=== PATIENT | male | born 1950 | race Caucasian/White ===

== ENCOUNTER 2019-02-07 21:58 | Inpatient (IN) | payer OTHER ==
[~2019-02-07] VITALS: Ht 182.9 cm; Wt 134.9 kg
--- NOTE | 2019-02-07 22:16 | NUR ---
PT BROUGHT IN BY AMBULANCE FOR SOB AND LEFT LOWER EXTREMITY EDEMA X 1 WEEK WITH WORSENING SOB X 4HRS AND CHEST PAIN X 1 HR. PT AWAKE, ALERT, RESPIRATIONS APPEAR SLIGHTLY LABORED BUT SYMMETRICAL. LEFT LOWER EXTREMITIES +2 PITTING EDEMA, RIGHT LOWER EXTREMITY +1PITTING EDEMA. PT ABLE TO SPEAK IN COMPLETE SENTENCES. WILL CONTINUE TO MONITOR. SAFETY PRECAUTIONS IN PLACE
--- NOTE | 2019-02-07 22:21 | NUR ---
DR. KAUR AT BEDSIDE FOR MSE
--- NOTE | 2019-02-07 22:45 | NUR ---
RN NEUROLOGY AT BEDSIDE. PT PROVIDED WITH URINAL AND INSTRUCTED TO PROVIDE URINE SAMPLE, PT VERBALIZES UNDERSTANDING
[2019-02-07 23:06] LABS: BASOPHIL % 0.1 % (0-2); PLATELET COUNT 193 x10^3mcL (130-400)
[2019-02-07 23:19] LABS: CALCIUM 8.8 mg/dL (8.5-10.1); CARBON DIOXIDE 26.8 mmol/L (21-32); CHLORIDE SERUM 100 mmol/L (98-107); CREATININE SERUM 0.9 mg/dL (0.7-1.3); GFR1 > 60 mL/min; GLUCOSE SERUM 119 mg/dL (74-106); POTASSIUM SERUM 4.6 mmol/L (3.5-5.1); SODIUM SERUM 138 mmol/L (136-145)
[2019-02-07 23:24] LABS: ALKALINE PHOSPHATASE 108 U/L (46-116); ALT/SGPT 66 U/L (16-63); AST/SGOT 62 U/L (15-37); BILIRUBIN TOTAL 0.4 mg/dL (0.20-1.00); TOTAL PROTEIN, SERUM 7.4 g/dL (6.4-8.2)
--- NOTE | 2019-02-07 23:27 | NUR ---
PT APPEARS TO HAVE MORE LABORED BREATHING AT THIS TIME. PT REPORTS BEING MORE SOB. EXPIRATORY WHEEZES AUSCULTATED. DR. KAUR MADE AWARE OF THE ABOVE. WILL CONTINUE TO MONITOR CLOSELY. SAFETY PRECAUTIONS IN PLACE
--- NOTE | 2019-02-07 23:31 | NUR ---
report given to delta steiner
[2019-02-07 23:35] LABS: UA SPECIFIC GRAVITY 1.025 (1.005-1.035); microscopic required? YES; urine erythrocyte NEGATIVE (NEGATIVE)
[2019-02-07 23:37] LABS: CK-MB 3.3 ng/mL (0-3.6)
[2019-02-08] VITALS (8 sets, daily range): BP systolic 125–179; BP diastolic 57–93
--- NOTE | 2019-02-08 00:05 | NUR ---
PT UNABLE TO TOLERATE ORDERED SETTING ON BIPAP OF 12/6, TITRATED TO 10/5 PT [address] SETTINGS WELL. DR KAUR NOTIFED ABOUT CHANGES. WILL CONTINUE TO MONITOR.
--- NOTE | 2019-02-08 00:12 | NUR ---
PT ON BIPAP AT THIS TIME. DENIES SOB AT THIS TIME. AWAKE, ALERT, RESPIRATIONS EVEN AND UNLABORED. SAFETY PRECAUTIONS IN PLACE
[2019-02-08] MEDS ORDERED: OXYCODONE HYDRO15 MG PO (00:44)
[2019-02-08] MEDS ORDERED: ALBUTEROL0.63 MG/3 (00:45)
[2019-02-08] MEDS ORDERED: ALL DAY ALLERGY10 M2 PO (00:45)
[2019-02-08] MEDS ORDERED: PROAIR HFA8.5 GM IH (00:45)
--- NOTE | 2019-02-08 00:45 | NUR ---
MEDICATED PER EMAR. PT REQUESTED TO BE REMOVED OFF BIPAP "FOR A FEW MINUTES." PT PLACED ON 5L . WILL MONITOR. RESPIRATIONS EVEN AND UNLABORED. AWAKE, ALERT. FAMILY AT BEDSIDE. SAFETY PRECAUTIONS IN PLACE
--- NOTE | 2019-02-08 01:06 | NUR ---
PT REFUSING TO BE PUT BACK ON BIPAP AT THIS TIME. WILL CONTINUE TO MONITOR. PT CURRENTLY SITTING IN BED USING PHONE. AWAKE, ALERT, RESPIRATIONS EVEN AND UNLABORED. SAFETY PRECAUTIONS IN PLACE
--- NOTE | 2019-02-08 01:40 | NUR ---
REPORT GIVEN TO MARCIE FORTUNE, ALL QUESTIONS AND CONCERNS WERE ADDRESSED
--- NOTE | 2019-02-08 02:20 | NUR ---
RECEIVED PT FROM ED VIA [facility] ACCOMPANIED BY RN AND EMT. PT ABLE TO AMBULATE FROM [facility] TO BED WITH SLOW BUT STEADY GAIT. SOB AND DYSPNEA WITH EXERTION. BREATHING ON 2LNC, EVEN AND SHALLOW, B/L WHEEZES NOTED, O2 SAT 94% PT ADMITS TO SMOKING 1/2 TO 2 PPD AND QUIT 1 WEEK AGO. PT DOES NOT USE O2 AT HOME. PULSES PRESENT AND EQUAL THROUGHOUT, +1 EDEMA TO LLE, TRACE EDEMA TO RLE. AA/OX4, ABLE TO MAKE NEEDS KNOWN, SPEECH CLEAR AND APPROPRIATE. NSR TO TELE #1, HR 80, DENIES CP OR PRESSURE. ABD ROUND AND SOFT WITH ACTIVE BOWEL SOUNDS, DENIES N/V/D, C/O ABD TENDERNESS UPON PALPATION, PT HAS HX OF HERNIA REPAIR X2. PT HAS INTRA ABDOMINAL FENTYNL PUMP THAT ADMINISTERS 1412 MCG PER DAY TO PT'S SPINAL CORD. PT STATES HE GETS IT REFILLED AT A PAIN CLINIC. FREELY VOIDS URINE WITHOUT ISSUE. PT HAS HX OF TESTICULAR CANCER WITH R TESTICLE REMOVED. GENERALIZED WEAKNESS, AMBULATORY WITHOUT ASSISTIVE DEVICE AT BASELINE. IV TO LAC IN PLACE, DRY, PATENT, INTACT, S/L AT THIS TIME, FLUSHED WELL WITH NS WITH GOOD BLOOD RETURNED. ORIENTED PT TO ROOM AND CALL LIGHT. ALL NEEDS ASSESSED AND ATTENDED TO. CALL LIGHT WITHIN REACH. WILL CONTINUE TO MONITOR
[2019-02-08 02:58] LABS: CHOLESTEROL/HDL RATIO 3.4; MAGNESIUM 1.6 mg/dL (1.8-2.4); PHOSPHOROUS 2.8 mg/dL (2.5-4.9)
[2019-02-08 03:05] LABS: T3 TOTAL 1.59 ng/mL
[2019-02-08 03:11] LABS: FREE T4 1.46 ng/dL (0.76-1.46); FREE THYROXINE INDEX 3.4 ug/dL (1.4-4.5)
--- NOTE | 2019-02-08 04:22 | NUR ---
PT LAYING IN BED, BREATHING EVEN AND UNLABORED ON 2LNC. NO ACUTE DISTRESS OBSREVED. AROUSABLE TO VERBAL STIMULI. CALL LIGHT WITHIN REACH. WILL CONTINUE TO MONITOR
--- NOTE | 2019-02-08 05:31 | NUR ---
PT HAS VERY DRY COUGH, REQUESTING BREATHING TX. RT MADE AWARE. WILL ANTICIPATE
--- NOTE | 2019-02-08 06:12 | NUR ---
NO SIGNIFICANT CHANGES TO REPORT. PT COMPLIED WITH NURSING CARE TRHOUGHOUT THE SHIFT. PT REMAINS BREATHING ON 2L NC, EVEN AND UNLABORED, LAYING IN BED, AROUSABLE TO VERBAL STIMULI. PT COMPLIED WITH NURSING CARE THROUGHOUT THE SHIFT. COMFORT AND SAFETY MEASURES MAINTAINED. ALL NEEDS ASSESSED AND ATTENDED TO. CALL LIGHT WITHIN REACH. WILL CONTINUE TO MONITOR AND ENDORSE CARE TO DAY SHIFT NURSE
[2019-02-08 06:13] LABS: BASOPHIL % 0.1 % (0-2); PLATELET COUNT 205 x10^3mcL (130-400)
[2019-02-08 06:43] LABS: CALCIUM 9.5 mg/dL (8.5-10.1); CARBON DIOXIDE 23.4 mmol/L (21-32); CHLORIDE SERUM 102 mmol/L (98-107); GFR1 > 60 mL/min; GLUCOSE SERUM 163 mg/dL (74-106); POTASSIUM SERUM 4.4 mmol/L (3.5-5.1); SODIUM SERUM 140 mmol/L (136-145)
[2019-02-08 07:06] LABS: RED CELL DISTRIBUTION WIDTH 17.3 % (11.5-14.5)
--- NOTE | 2019-02-08 08:00 | NUR ---
RECEIVED PATIENT A/A/OX4; CLEAR SPEECH. TELE#6; SR; HR = 90'S. DENIED CHEST PAIN. C/O SOB ON EXCERTION. BREATHING SOUND DIMINISHED W/ WHEEZING JOSIAH. O2 SAT 94% ON 2L VIA N/C; RT PROTOCOL. TOLERATED REGULAR DIET. PATIENT HAD HX OF CHRONIC BACK PAIN W/ SX; C/O BACK APIN ON AND OFF. FENTANYL PUMP TO L ABD, UNDER SKIN ( PER PATIENT- INFUSING 1412 MCG FENTANYL DAILY). PATIENT AMBULATED ON SLOW, STEADY GAIT. HAD BM X1 THIS AM VIA BRP. VOID FREELY. CALL LIGHT IN REACH.
--- NOTE | 2019-02-08 11:17 | NUR ---
C/O BACK PAIN ON 02/17; OXICODONE 15MG PO GIVEN. CONTINUE MONITOR.
--- NOTE | 2019-02-08 19:00 | NUR ---
RESP CONDITION IMPROVING. RT PROTOCOL. HAD BM X1; VOID FREELY VIA BRP INCORSE CARE TO NOC NURSE.
--- NOTE | 2019-02-08 19:35 | NUR ---
RECEIVED PT RESTING IN BED, NO ACUTE DISTRESS NOTED. PT WITH INTRACTIBLE COUGH AT THIS TIME, REQUESTING BREATHING TX, WILL FOLLOW UP WITH RT. AOX4, DENIES [place]/DIZZINESS. TELE # 6 SR, DENIES CP. PULSES PALPABLE BILAT, DENIES NUMBNESS/TINGLING IN FEET. TRACE EDEMA NOTED. RESP LABORED DURING COUGHING EXACERBATION. INSP & EXP WHEEZE NOTED. PT ON 2LNC. OBESE PT, DENIES N/V/D. PT BRP, SLOW/STEADY GAIT. GENERALIZED WEAKNESS, SKIN INTACT. DENIES PAIN AT THIS TIME. PT WITH IMPLANTED FENTANYL PUMP TO ABD FOR HX OF CHRONIC PAIN. IV SITE TO THE LAC PATENT, SALINE LOCKED AT THIS TIME. ALL COMFORT AND SAFETY MEASURES PROVIDED FOR, CALL LIGHT WITHIN REACH BED IN LOWEST POSITION, WILL CONTINUE TO MONITOR.
--- NOTE | 2019-02-08 19:53 | NUR ---
PHONED RT ABOUT PT WITH AUDIBLE WHEEZE (EXP & INSP), UNCONTROLLABLE COUGH AT THIS TIME. PER RT WILL COME UP NOW.
--- NOTE | 2019-02-08 23:17 | NUR ---
PAGED [facility] FOR DR. SONG, WILL REQUEST SOMETHING TO HELP PT RELAX WELL ASSIST WITH TOLERANCE OF BIPAP. WILL WAIT FOR CALL BACK.
--- NOTE | 2019-02-09 05:10 | NUR ---
PT RESTED IN INTERVALS DURING SHIFT, NO ACUTE CHANGES OCCURRING OVERNIGHT. PT DID NOT TOLERATE THE BiPAP LAST NIGHT, RT ATTEMPTED TO COMBINE BREATHIGN TX WITH INITIATION OF BiPAP AND RELAXATION MEDICATION, ALTHOUGH NO SUCCESS. PT EDUCATED ON THE BENEFITS OF THE MACHINE, WILL CONTINUE TO ENCOURAGE ITS USE. INCETIVE SPIROMETER AT BEDSIDE AND RT EDUCATED PT ON THE USE WELL. PT REMAINS ON 2LNC, TOLERATING BREATHING TX WELL. IV SITE PATENT. NO REDNESS, SWELLING OR PAIN NOTED. CALL LIGHT WITHIN REACH, BED IN LOWEST POSITON, WILL CONTINUE TO MONITOR.
[2019-02-09 06:02] LABS: PLATELET COUNT 198 x10^3mcL (130-400)
[2019-02-09 06:12] VITALS: BP 130/49
[2019-02-09 06:31] LABS: CALCIUM 9.6 mg/dL (8.5-10.1); CARBON DIOXIDE 23.7 mmol/L (21-32); CHLORIDE SERUM 106 mmol/L (98-107); GFR1 > 60 mL/min; GLUCOSE SERUM 206 mg/dL (74-106); POTASSIUM SERUM 4.9 mmol/L (3.5-5.1); SODIUM SERUM 145 mmol/L (136-145)
[2019-02-09 06:41] LABS: BASOPHIL % 0 % (0-2); RED CELL DISTRIBUTION WIDTH 17.5 % (11.5-14.5)
--- NOTE | 2019-02-09 07:39 | NUR ---
ENDORSED ALL CARE TO DAYSHIFT NURSE, ALL QUESTIONS AND CONCERNS ADDRESSED. ALL COMFORT AND SAFETY MEASURES PROVIDED FOR, CALL LIGHT WITHIN REACH, BED IN LOWEST POSITION, WILL CONTINUE TO MONITOR.
--- NOTE | 2019-02-09 08:00 | NUR ---
SHIFT ASSESSMENT DONE. PATIENT A/A/OX4. TELE#6; HR = 90. DENIED CHEST PAIN. CONGESTED COUGHING AT TIMES. STATED NO SPUTUM. RT PROTOCOL. WHEEZING SOUND AND RHONCHI SUBSIDING. FENTANYL PUMP TO LLQ ABD. HX OF MULTIPLE BACK SURGERIES. PATIENT NO C/O BACK PAIN NOW. ABLE TO WALK IN ROOM. TOLERATRED REGULAR DIET BREAKFAST. NO N/V. IVHL'D TO LAC. PATENT WITH NS FLUSHING. CALL LIGHT IN REACH.
[2019-02-09 09:54] VITALS: BP 149/58
--- NOTE | 2019-02-09 11:56 | NUR ---
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, back surgery x5, feet surgeries, left arm surgery Labs: BG 206H, BUN 24H, AST 62H, ALT 66H Meds: Colace, lactinex, Levaquin, pulmicort, zofran Diet: Regular PO Intake: Breakfast 50% per patient Ht: 182.88 cm (72") Wt: 134.9 kg (296#) BMI: 40.3 kg/m2 (morbid obesity) Bed scale: 134.9 kg IBW: 178# (81 kg) %IBW: 166 UBW: 216# Age: 68/M Food Allergies: NKFA Skin: intact Ion: 19 Edema: none GI: Last BM: 02/08 Trigger- admitted w/ potential risk diagnosis Per H&P, Pt is a 68 year old male with PMH of chronic pain from multiple back surgeries, COPD, and right testicular cancer in remission with chemotherapy and right testicular removal was brought in by ambulance from home for shortness of breath for 1 week. RDN Visit (02/09): Patient was alert and oriented. Patient was coughing a lot while answering questions. Patient said that he gained about 80# in last 6-8 months as he is unable to sleep at night and then feels like eating. Patient is unable to do exercise due to back and knee pain. Paged Dr. Victor Manuel Cervantes, waiting for call back. Problem with: N/V/D/C: no Problems with: Chewing/Swallowing: sometimes d/t coughing Current appetite: fair Recent wt change: gained 80# x 6-8 months %wt change: 37% Vitamin/Supplement use: no Special diet at home: regular Physical activity: sedentary d/t back pain, surgeries Nutrition education given: COPD diet education was provided using [facility] handout on 'Nutrition Therapy for COPD'. Concepts like small frequent meals, label reading, high fiber foods were discussed. Food-drug interactions: Colace- high fiber w/2421-1916 ml fluids Education given: no Estimated Nutritional Needs Based on adjusted body weight 94 kg Energy: 1987-8915 kcal/d (20-25 kcal/kg) Protein: 75.2-94 g/d (0.8-1.0 g/kg) - preserve LBM Fluid: per doctor Nutrition Diagnosis 1. Inadequate oral intake related to COPD, cough as evidenced by self-reported PO of 50% Intervention 1. Recommend low fat diet. Monitor/Evaluate Goal: PO intake at least 75% of estimated needs Monitor: PO intake, Labs, GI function F/U in 3-5 days as moderate risk 02/12-7
--- NOTE | 2019-02-09 11:56 | NUR ---
1. Recommend low fat diet.
[2019-02-09 13:17] VITALS: BP 152/55
--- NOTE | 2019-02-09 15:21 | NUR ---
PT C/O OF ACHING CHRONIC BACK PAIN; GIVEN ROXICODONE 15MG PO; INSTRUCTED PT TO LAY DOWN AND REST; WILL ENDORSE TO DEVIKA SONG.
[2019-02-09 18:22] VITALS: BP 148/69
--- NOTE | 2019-02-09 18:52 | NUR ---
CONDITION IMPROVING. LESS COUGHING AND WHEEZING. TOLERATED RA. RT PROTOCOL CONTINUED. ENDORSED CARE TO NOC NURSE.
--- NOTE | 2019-02-09 19:40 | NUR ---
RECEIVED REPORT FROM DAY SHIFT RN. PT SITTING ON THE SIDE OF THE BED. AA&O X4. NO SOB ON O2 2L VIA NC. C/O HEADACHE. WILL MEDICATE PER ORDER. SALINE LOCK TO LAC, INTACT. SAFETY MEASURES IN PLACE. BED IN LOWEST POSITION. SIDE RAILS UP X2. INSTRUCTED PT TO USE THE CALL LIGHT FOR ASSISTANCE. CALL LIGHT WITHIN REACH. FAMILY AT BEDSIDE.
--- NOTE | 2019-02-09 19:50 | NUR ---
C/O HEADACHE 03/20. TYLENOL GIVEN.
[2019-02-09 21:37] VITALS: BP 151/50
--- NOTE | 2019-02-09 22:10 | NUR ---
MUCINEX GIVEN FOR COUGH.
--- NOTE | 2019-02-10 00:20 | NUR ---
PT REQUESTED BREATHING TREATMENT.
--- NOTE | 2019-02-10 04:20 | NUR ---
PT C/O SOB. CONTACTED R.T. FOR BREATHING TREATMENT.
[2019-02-10 06:07] VITALS: BP 150/59
[2019-02-10 06:18] LABS: PLATELET COUNT 247 x10^3mcL (130-400)
[2019-02-10 06:19] LABS: BASOPHIL % 0 % (0-2)
[2019-02-10 06:30] LABS: ALBUMIN 3.6 g/dL (3.4-5.0); ALKALINE PHOSPHATASE 87 U/L (46-116); ALT/SGPT 69 U/L (16-63); AST/SGOT 50 U/L (15-37); BILIRUBIN TOTAL 0.29 mg/dL (0.20-1.00); CALCIUM 9.9 mg/dL (8.5-10.1); CARBON DIOXIDE 22.3 mmol/L (21-32); CHLORIDE SERUM 105 mmol/L (98-107); CREATININE SERUM 1.1 mg/dL (0.7-1.3); GFR1 > 60 mL/min; GLUCOSE SERUM 170 mg/dL (74-106); POTASSIUM SERUM 4.6 mmol/L (3.5-5.1); SODIUM SERUM 142 mmol/L (136-145); TOTAL PROTEIN, SERUM 7.3 g/dL (6.4-8.2)
--- NOTE | 2019-02-10 06:52 | NUR ---
PT RESTED AT INTERVALS THROUGHOUT SHIFT. SOB ON EXERTION. ON AND OFF COUGH. RECEIVED BREATHING TREATMENTS. ON RT PROTOCOL. SAFETY MEASURES MAINTAINED. ALL NEEDS ATTENDED TO. CALL LIGHT WITHIN REACH. WILL ENDORSE CONTINUITY OF CARE TO ONCOMING RN.
--- NOTE | 2019-02-10 07:25 | NUR ---
PT IS AAOX4, FOLLOWS COMMANDS, ABLE TO MAKE NEEDS KNOWN. DENIES H/A OR DIZZINESS. RESP EVEN WITH SOB. LUNGS SOUNDS NOTED WITH BUL FINE CRACKELS AND DIMINISHED X 4 LOBES. ON O2 N/C AT 2LPM. PT HAS COUGH WITH CLEAR WHITE THICK SECRETIONS EXPECTORATED. TELE [address] READING NSR. PT HAS BLE TRACE EDEMA. PERIPHERAL PULSES PALPABLE. CAP REFILL <3 SEC. DENIES NUMBNESS AND TINGLING. IV CATH TO LAC N/S LOCKED. SITE WNL, NO S/S OF INFECTION OR INFILTRATION NOTED. SKIN CDI. NO EDEMA NOTED. CALL LIGHT WITHIN REACH. BED IN LOW POSITION. FALL PROTOCOL MAINTAINED.
--- NOTE | 2019-02-10 07:40 | NUR ---
ROXICODONE 15MG PO GIVEN FOR THROBBING BACK PAIN 04/20. EXTRA FLUIDS GIVEN. PT NOTED WITH COUGH AND AUDITORY WHEEZE. R/T CALLED WITH REQUEST FOR BREATHING TX. CONFIRMED THEY ARE ON THEIR WAY. PT SITTING UP IN BEDSIDE CHAIR EATING BREAKFAST. CALL LIGHT WITHIN REACH.
[2019-02-10 08:47] VITALS: BP 153/78
--- NOTE | 2019-02-10 08:49 | NUR ---
DR. SONG MET WITH PT AND DISCUSSED POC. PT STATED HE HAD CHRONIC COUGH AND NEEDS A BREATHING TX. DR. SONG STATED HE WILL INCREASE LASIX. PT AGREED WITH POC.
--- NOTE | 2019-02-10 09:44 | NUR ---
PT IS SITTING UP AT BEDSIDE. SOB BUT STATES NO BREATHING TX NEEDED AT THIS TIME. PT STATES HIS PAIN IS 4/10 BUT HE HAS A FENTANYL PUMP INFUSING AND THAT WILL TX THE PAIN AT THIS TIME. FLUIDS ENCOURAGED. PT TAUGHT TO COUGH AND DEEP BREATH. PT DEMONSTATED UNDERSTANDING. AT BEDSIDE. CALL LIGHT WITHIN REACH.
--- NOTE | 2019-02-10 10:56 | NUR ---
DUE MED GIVEN, BUMEX. PT EDUCATED ON THE S/E OF MEDICATION. PT VERBALIZED UNDERSTANDING. MUCINEX GIVEN FOR COUGH. PT SITTING UP AT BEDSIDE. PT GIVEN URINAL AND TAUGHT TO CALL FOR HELP WHEN GETTING UP OUT OF BED. PT VERBALIZED UNDERSTANDING. AT BESIDE. CALL LIGHT WITHIN REACH.
--- NOTE | 2019-02-10 10:56 | NUR ---
DUE MED GIVEN, BUMEX. PT EDUCATED ON THE S/E OF MEDICATION. PT VERBALIZED UNDERSTANDING. MUCINEX GIVEN FOR COUGH. PT SITTING UP AT BEDSIDE. PT GIVEN URINAL AND TAUGTH TO CALL FOR HELP WHEN GETTING UP OUT OF BED. PT VERBALIZED UNDERSTANDING. AT BESIDE. CALL LIGHT WITHIN REACH.
--- NOTE | 2019-02-10 11:39 | NUR ---
RECEIVED ORDER FROM DR. SONG, ATIVAN 1MG PO Q 6 HOURS PRN FOR ANXIETY. ORDER NOTED AND CARRIED OUT. PT MADE AWARE.
[2019-02-10 12:01] VITALS: BP 156/66
--- NOTE | 2019-02-10 12:49 | NUR ---
PT SITTING UP AT BEDSIDE EATING LUNCH. RESP EVEN, WITH SOB NOTED. N/C AT 2LPM REMAINS IN PLACE. PT STATES PAIN IS 4/10 TO LOWER BACK BUT STATED HE WOULD LIKE TO WAIT TO TAKE PAIN MEDICATION. CALL LIGHT WITHIN REACH.
--- NOTE | 2019-02-10 13:21 | NUR ---
PT IS AAOX4, FOLLOWS COMMANDS, ABLE TO MAKE NEEDS KNOWN. DENIES H/A OR DIZZINESS. RESP EVEN WITH SOB. LUNGS SOUNDS NOTED WITH BUL FINE CRACKELS AND DIMINISHED X 4 LOBES. ON O2 N/C AT 2LPM. PT HAS COUGH WITH CLEAR WHITE THICK SECREATIONS EXPECTORATED. TELE [address] READING NSR. PT HAS BLE TRACE EDEMA. PERIPHERAL PULSES PALPABLE. CAP REFILL <3 SEC. DENIES NUMBNESS AND TINGLING. IV CATH TO LAC N/S LOCKED. SITE WNL, NO S/S OF INFECTION OR INFILTRATION NOTED. SKIN CDI. NO EDEMA NOTED. CALL LIGHT WITHIN REACH. BED IN LOW POSITION. FALL PROTOCOL MAINTAINED.
--- NOTE | 2019-02-10 15:16 | NUR ---
TYLENOL 650MG PO GIVEN FOR [place], THROBBING H/A 5/10. ATIVAN 1MG PO GIVEN FOR ANXIETY. PT TAKES ATIVAN JUST BEFORE HE FEELS HE IS GOING TO NEED BIPAP PRN. ATIVAN ALLOWS HIM TO TOLERATE TREATMENT. PT REPOSITIONED FOR COMFORT. NO OTHER DISTRESS NOTED. CALL LIGHT WITHIN REACH.
--- NOTE | 2019-02-10 16:07 | NUR ---
ROXICODINE 15MG PO GIVEN FOR THROBBING BACK PAIN 03/20. PT ASSISTED TO THE BATHROOM, THEN POSITION IN BED FOR COMFORT. RESP EVEN AND UNLABOERD. WILL CONTINUE TO MONITOR.
--- NOTE | 2019-02-10 16:27 | NUR ---
PT IS RECEIVING BREATHING TX AT THIS TIME.
[2019-02-10 17:00] VITALS: BP 145/72
--- NOTE | 2019-02-10 17:41 | NUR ---
ROXICODONE 15MG PO GIVEN FOR ACHING BACK PAIN 03/20. DUE MEDS GIVEN. PT NOTED WITH SHORTNESS OF BREATH. PT STATES HE DOSE NOT NEED BREATHING TX AT THIS TIME. O2 N/C AT 2LPM IN PLACE. PT IS SITTING UP AT BEDSIDE EATING DINNER AND VISITING WITH . WILL CONTINUE TO MONITOR.
--- NOTE | 2019-02-10 19:10 | NUR ---
PT RECEIVED A/O X4, ABLE TO MAKE NEEDS KNOWN. TELE #6, DENIES ANY CP/PRESSURE. PULSES PALPABLE, TRACE EDEMA TO BLE. BREATHING IS EVEN AND UNLABORED ON 2L NC, DENIES SOB, PT NOTED WITH COUGH, NO RESP DISTRESS NOTED. ABD SOFT AND ROUND, BOWEL TONES ACTIVE X4 QUADS, DENIES N/V. VOIDS FREELY. GENERALIZED WEAKNESS. SKIN IS WARM AND DRY, INTACT. PT DENIES HAVING ANY PAIN AT THIS TIME. PT HAS INTRA-ABD FENTANYL PUMP THAT ADMINISTERS MED TO PT'S SPINAL CORD. SL TO LAC, PATENT AND INTACT, SITE WNL. SPOUSE AT BEDSIDE. NO ACUTE DISTRESS NOTED. BED IN LOWEST SETTING, SIDE RAILS UP X2, CALL LIGHT WITHIN REACH. WILL CONT TO MONITOR.
--- NOTE | 2019-02-10 19:48 | NUR ---
PT C/O OF SOB, BREATHING IS EVEN AND SHALLOW, 02 SAT ON 2L NC-96%, NO RESP DISTRESS NOTED. RT CALLED AND AT BEDSIDE ADMINISTERING BREATHING TX. PT REPORTS BREATHING TX EFFECTIVE, 02 SAT ON 2L NC-97%. CALL LIGHT WITHIN REACH. WILL CONT TO MONITOR.
[2019-02-10 19:58] VITALS: BP 156/71
--- NOTE | 2019-02-10 21:05 | NUR ---
PT C/O 03/20 HEADACHE, PRN TYLENOL GIVEN ORDERED. NO ACUTE DISTRESS NOTED. WILL CONT TO MONITOR.
--- NOTE | 2019-02-10 23:00 | NUR ---
PT C/O ANXIETY, PT REQUESTING ANTI-ANXIETY MED. PRN ATIVAN PO GIVEN ORDERED. PT ALSO C/O CONGESTION, PRN MUCINEX GIVEN ORDERED. NO ACUTE DISTRESS NOTED. CALL LIGHT WITHIN REACH. WILL CONT TO MONITOR.
[2019-02-11] VITALS (7 sets, daily range): BP systolic 123–187; BP diastolic 46–92
--- NOTE | 2019-02-11 00:10 | NUR ---
PT C/O 8 BACK PAIN, PRN ROXICODONE GIVEN ORDERED. PT ALSO C/O SOB, 02 SAT ON 2L NC-95%, NO RESP DISTRESS NOTED. RT CALLED AND AT BEDSIDE ADMINISTERING BREATHING TX. NO ACUTE DISTRESS NOTED. CALL LIGHT WITHIN REACH. WILL CONT TO MONITOR.
--- NOTE | 2019-02-11 05:21 | NUR ---
PT C/O 03/20 HEADACHE, PRN TYLENOL GIVEN ORDERED. NO ACUTE DISTRESS NOTED. CALL LIGHT WITHIN REACH. WILL CONT TO MONITOR.
[2019-02-11 06:08] LABS: PLATELET COUNT 268 x10^3mcL (130-400)
[2019-02-11 06:34] LABS: ALBUMIN 3.7 g/dL (3.4-5.0); ALKALINE PHOSPHATASE 82 U/L (46-116); ALT/SGPT 70 U/L (16-63); AST/SGOT 42 U/L (15-37); BILIRUBIN TOTAL 0.37 mg/dL (0.20-1.00); CALCIUM 9.6 mg/dL (8.5-10.1); CARBON DIOXIDE 24.3 mmol/L (21-32); CHLORIDE SERUM 102 mmol/L (98-107); CREATININE SERUM 1.1 mg/dL (0.7-1.3); GFR1 > 60 mL/min; GLUCOSE SERUM 186 mg/dL (74-106); PHOSPHOROUS 3.3 mg/dL (2.5-4.9); SODIUM SERUM 141 mmol/L (136-145); TOTAL PROTEIN, SERUM 7.5 g/dL (6.4-8.2)
--- NOTE | 2019-02-11 06:44 | NUR ---
PT SLEPT AT INTERVALS THROUGHOUT THE EVENING. BREATHING IS EVEN AND UNLABORED ON 2L NC, NO RESP DISTRESS NOTED. PT DENIES HAVING ANY PAIN AT THIS TIME. IV TO LAC, PATENT AND INTACT, SITE WNL. NO ACUTE CHANGES ENCOUNTERED DURING SHIFT. ALL NEEDS MET. CALL LIGHT WITHIN REACH. WILL ENDORSE CARE TO AM NURSE.
[2019-02-11 07:15] LABS: BASOPHIL % 0 % (0-2); RED CELL DISTRIBUTION WIDTH 16.9 % (11.5-14.5)
--- NOTE | 2019-02-11 07:45 | NUR ---
HANDOFF REPORT RECEIVED. PATIENT STATED " I JUST WENT TO THE BATHROOM " O2 NOT IN USE. O2 SAT 90 ON ROOM AIR. 94% ON 2LPM. INSTRUCTED TO USE O2 AT ALL TIMES. WILL REASSESS.
--- NOTE | 2019-02-11 09:23 | NUR ---
SEEN BY MD SONG.
--- NOTE | 2019-02-11 12:25 | NUR ---
STARTED ON NICOTINE PATCH. ATIVAN PO GIVEN FOR ANXIETY.
--- NOTE | 2019-02-11 16:41 | NUR ---
DENIES SHORTNESS OF BREATH. O2 AT 2LPM IN USE.
--- NOTE | 2019-02-11 19:56 | NUR ---
RECEIVED PT IN BED, WITH THE AT THE BEDSIDE, VISITING. A/OX4. ABLE TO VERBALIZE NEEDS. DENIES HEADACHE/DIZZINESS. RESP. EVEN AND UNLABORED. 02 AT 2L/MIN VIA NC, LUNG SOUNDS WITH SLIGHT WHEEZES/FEW CRACKLES, ON RT PROTOCOL. NO ACUTE DISTRESS NOTED. SR ON THE MONITOR, DENIES CP OR ANY DISCOMFORT AT THIS TIME. ASSISTED WITH HS CARE. HL TO LAC, INTACT AND PATENT. CALL LIGHT WITHIN REACH. WILL CONTINUE TO MONITOR.
--- NOTE | 2019-02-12 01:16 | NUR ---
PT AWAKE , REQUESTING ROXICODONE PO FOR BACK PAIN 01/18, MEDICATED ORDERED. WILL CONTINUE TO MONITOR.
--- NOTE | 2019-02-12 02:06 | NUR ---
RESTING QUIETLY IN BED WITH EYES CLOSED, APPEARS ASLEEP, EASILY AROUSABLE. [address], NO ACUTE DISTRESS NOTED. CALL LIGHT WITHIN REACH. WILL CONTINUE TO MONITOR.
[2019-02-12 05:29] VITALS: BP 177/75
[2019-02-12 05:57] LABS: PLATELET COUNT 270 x10^3mcL (130-400)
--- NOTE | 2019-02-12 06:17 | NUR ---
AFEBRILE AND VITAL SIGNS STABLE. RESP. EVEN AND UNLABORED. [address], HOLLI. WELL, RESP. TREATMENT GIVEN BY RT, HOLLI. WELL. DENIES SOB. NO ACUTE DISTRESS NOTED.DUE MEDS GIVEN ORDERED, HOLLI. WELL. SR/ST ON THE MONITOR, DENIES CP OR ANY DISCOMFORT AT THIS TIME. VOIDING FREELY. KEPT COMFORTABLE.WILL CONTINUE TO MONITOR.
[2019-02-12 06:39] LABS: RED CELL DISTRIBUTION WIDTH 16.7 % (11.5-14.5)
[2019-02-12 06:47] LABS: ALBUMIN 3.6 g/dL (3.4-5.0); ALKALINE PHOSPHATASE 72 U/L (46-116); ALT/SGPT 84 U/L (16-63); AST/SGOT 42 U/L (15-37); BILIRUBIN TOTAL 0.5 mg/dL (0.20-1.00); CALCIUM 9.4 mg/dL (8.5-10.1); CARBON DIOXIDE 30.7 mmol/L (21-32); CHLORIDE SERUM 102 mmol/L (98-107); CREATININE SERUM 1.2 mg/dL (0.7-1.3); GFR1 > 60 mL/min; GLUCOSE SERUM 207 mg/dL (74-106); POTASSIUM SERUM 3.7 mmol/L (3.5-5.1); SODIUM SERUM 144 mmol/L (136-145); TOTAL PROTEIN, SERUM 7.2 g/dL (6.4-8.2)
--- NOTE | 2019-02-12 07:40 | NUR ---
RECEIVED PT FROM CATALYTIC CASE OPERATOR. PT AWAKE, ALERT A/OX4. PT SITTING ON SIDE OF BED. PT ON 2LNC WITH SOME SOB NOTED. PT ON TELE 6, DENIES CHEST PAIN. IV ACCESS LAC C/D/I, SALINE LOCKED. PERIPHERAL PULSES PALPABLE, EDEMA NOTED TO BLE. PT COMPLAINS OF BACK PAIN 04/20, WILL MEDICATE PRN. ACTIVE BS NOTED, NO APPARENT ISSUES WITH ELIMINATION AT THIS TIME. SAFETY MEASURES IN PLACE, BED LOW AND LOCKED. CALL LIGHT WITHIN REACH.
[2019-02-12 08:23] VITALS: BP 146/79
--- NOTE | 2019-02-12 08:24 | NUR ---
DUE MEDS ADMINISTERED. PT COMPLAINING OF HEADACHE, ASKING FOR TYLENOL. MED ADMINISTERED ORDERED PRN (SEE EMAR). WILL MONITOR.
--- NOTE | 2019-02-12 09:04 | NUR ---
PT ASKING FOR PAIN MED FOR PAIN IN BACK. ROXICODONE ADMINISTERED ORDERED PRN (SEE EMAR). PT SITTING AT EDGE OF BED WITH SOME SOB NOTED. WILL MONITOR.
--- NOTE | 2019-02-12 10:30 | NUR ---
PT REPORTS NOT MUCH RELIEF AFTER PAIN MED ADMINISTRATION. PAIN 7/10 AT THIS TIME TO BACK. PT REPORTS CHRONIC BACK PAIN. PT SITTING UP AT BEDSIDE. NO ACUTE DISTRESS NOTED. SAFETY MAINTAINED.
[2019-02-12 11:38] LABS: BAND NEUTROPHIL 0 % (0-10); BASOPHIL 0 % (0-2); MONOCYTE 6 % (0-7); PLATELET MORPHOLOGY PLATELETS DECREASED; SEGMENTED NEUTROPHILS 90 % (37-75)
--- NOTE | 2019-02-12 11:58 | NUR ---
PT REPORTS PAIN TO THROAT, PER PATIENT HE LOST HIS VOICE 4 DAYS AGO. CEPACOL ADMINISTERED ORDERED PRN. WILL MONITOR.
[2019-02-12 12:32] LABS: rbc morphology (normal/abnorm) ABNORMAL (NORMAL)
[2019-02-12 13:35] VITALS: BP 135/78
--- NOTE | 2019-02-12 13:45 | NUR ---
EDUCATION PROVIDED TO PATIENT AND FAMILY REGARDING MEDICATIONS. ALL QUESTIONS ANSWERED. PT RESTING AT THIS TIME WITH NO DISTRESS NOTED. WILL MONITOR.
--- NOTE | 2019-02-12 15:53 | NUR ---
PT SLEEPING AT THIS TIME WITH NO DISTRESS NOTED. BREATHING EVEN AND UNLABORED. SAFETY MAINTAINED.
[2019-02-12 17:12] VITALS: BP 151/73
--- NOTE | 2019-02-12 17:16 | NUR ---
PT COMPLAINING OF HEADACHE 03/20. ASKING FOR TYLENOL. MED ADMINISTERED ORDERED (SEE EMAR). PT SITTING IN BED WATCHING TV. WILL CONTINUE TO MONITOR.
--- NOTE | 2019-02-12 17:40 | NUR ---
PT REQUESTING SALINE FLUSH FOR NOSTRIL DRYNESS, NEW ORDER GIVEN BY DR SONG FOR NASAL SPRAY PRN.
--- NOTE | 2019-02-12 18:12 | NUR ---
PT ASLEEP WITH NO DISCOMFORT NOTED. MED EFFECTIVE. WILL CONT TO MONITOR.
--- NOTE | 2019-02-12 18:47 | NUR ---
PT COMPLAINING OF PAIN IN BACK, 03/20. ROXICODONE ADMINISTERED ORDERED (PRN). PT AWAKE, ALERT SITTING AT SIDE OF BED WITH NO DISTRESS NOTED. PT STABLE AT THIS TIME. ALL NEEDS TENDED TO THROUGHOUT SHIFT. WILL CONTINUE TO MONITOR AND ENDORSE CARE TO TRANSMISSION AND COORDINATION ENGINEER.
--- NOTE | 2019-02-12 19:50 | NUR ---
RECEIVED REPORT FROM DAY SHIFT RN. PT SITTING ON THE SIDE OF THE BED. AA&O X4. NO RESP DISTRESS NOTED. ON O2 3L VIA NC. NO C/O PAIN. IV TO LAC, SALINE LOCKED. SAFETY MEASURES IN PLACE. BED IN LOWEST POSITION. SIDE RAILS UP X2. CALL LIGHT WITHIN REACH. FAMILY AT BEDSIDE.
[2019-02-12 20:35] VITALS: BP 152/82
--- NOTE | 2019-02-12 21:23 | NUR ---
CEPACOL GIVEN FOR SORE THROAT.
--- NOTE | 2019-02-13 | NUR ---
PT GETTING BREATHING TREATMENT AT THIS TIME. RESP THERAPIST AT BEDSIDE.
--- NOTE | 2019-02-13 00:50 | NUR ---
PT RESTING WITH EYES CLOSED. NO SOB NOTED ON O2 3L VIA NC. CALL LIGHT WITHIN REACH. WILL CONTINUE TO MONITOR.
--- NOTE | 2019-02-13 02:45 | NUR ---
ROXICODONE GIVEN FOR SHARP BACK PAIN 05/20.
[2019-02-13 05:19] VITALS: BP 143/74
--- NOTE | 2019-02-13 06:54 | NUR ---
PT RESTING WITH EYES CLOSED. NO RESP DISTRESS NOTED. ON O2 3L VIA NC. NO FACIAL GRIMACING. SAFETY MEASURES MAINTAINED. CALL LIGHT WITHIN REACH. WILL ENDORSE CONTINUITY OF CARE TO ONCOMING RN.
--- NOTE | 2019-02-13 07:05 | NUR ---
RECEIVED BEDSIDE REPORT FROM VETERINARY SCIENCE TEACHER NURSE AT THIS TIME. PATIENT RESTING COMFORTABLY IN BED. NO APPARENT DISTRESS OR DISCOMFORT NOTED. BREATHING EVEN AND UNLABORED WITH 3L NC IN PLACE AND PATIENT TOLERATING WELL. NO INDICATION OF CHEST PAIN/PRESSURE AT THIS TIME. IV PATENT AND INTACT. ALL QUESTIONS AND CONCERNS ADDRESSED. ALL NEEDS ATTENDED TO. WILL CONTINUE TO MONITOR
[2019-02-13 08:33] VITALS: BP 158/75
--- NOTE | 2019-02-13 10:00 | NUR ---
ALL MORNING MEDICATIONS ADMINISTERED AT THIS TIME. PATIENT TOLERATED WELL. NO APPARENT DISTRESS OR DISCOMFORT NOTED. ALL NEEDS ATTENDED TO. WILL CONTINUE TO MONITOR
--- NOTE | 2019-02-13 10:40 | NUR ---
PATIENT REQUESTING MUCINEX AT THIS TIME. MUCINEX PO PRN ADMINISTERED. PATIENT TOLERATED WELL. NO ADVERSE EFFECTS NOTED. ALL NEEDS ATTENDED TO. FAMILY MEMBER AT BEDSIDE
[2019-02-13 12:15] VITALS: BP 148/63
--- NOTE | 2019-02-13 12:28 | NUR ---
DR REYES AT BEDSIDE AT THIS TIME REVIEWING POC WITH PATIENT AND . ALL QUESTIONS AND CONCERNS ADDRESSED. ALL NEEDS ATTENDED TO. WILL CONTINUE TO MONITOR
--- NOTE | 2019-02-13 14:40 | NUR ---
PT C/O CHRONIC ACHING BACK PAIN 03/20; GIVEN OXYCODONE 15MG PO; INSTRUCTED PT TO TURN OFF TV AND REST; WILL ENDORSE TO DEVIKA FRYE.
[2019-02-13 16:19] VITALS: BP 134/68
--- NOTE | 2019-02-13 17:29 | NUR ---
PATIENT SITTING UP ON SIDE OF BED EATING DINNER AT THIS TIME. PATIENT TOLERATING DIET WELL. FAMILY MEMBER AT BEDSIDE. NO APPARENT DISTRESS OR DISCOMFORT NOTED. ALL NEEDS ATTENDED TO. WILL CONTINUE TO MONITOR
--- NOTE | 2019-02-13 18:40 | NUR ---
PATIENT RESTING COMFORTABLY IN BED AT THIS TIME. NO APPARENT DISTRESS OR DISCOMFORT NOTED. IV PATENT AND INTACT. ALL QUESTIONS AND CONCERNS ADDRESSED. ALL NEEDS ATTENDED. SAFETY PRECAUTIONS MAINTAINED. WILL ENDORSE ALL CARE TO SHIPPING CLERK NURSE.
--- NOTE | 2019-02-13 19:45 | NUR ---
RECIEVED PT RESTING IN BED WITH NO ACUTE DISTRESS AT THIS TIME, ASSESSMENT PERFORMED AT THIS TIME, PT ON 2L VIA NC, IV TO THE LAC, SALINE LOCKED, PT DENIES CHEST PAIN OR SOB, SAFETY PRECAUTIONS IN PLACE, WILL CONTINUE TO MONITOR
[2019-02-13 21:47] VITALS: BP 163/65
--- NOTE | 2019-02-13 21:56 | NUR ---
PT BLOOD PRESSURE IS 163/65 ADMINISTERED APRESOLINE PER ORDER (SEE MAR) WILL CONTINUE TO MONITOR
--- NOTE | 2019-02-13 23:00 | NUR ---
PT SITTING ON SIDE OF BED STATING FEELINGS OF ANXIOUSNESS, ADMINISTERED ATIVAN PER ORDER (SEE MAR). WILL CONTINUE TO MONITOR.
[2019-02-13 23:15] VITALS: BP 158/65
[2019-02-14] VITALS (7 sets, daily range): BP systolic 132–188; BP diastolic 58–86
--- NOTE | 2019-02-14 01:49 | NUR ---
PT REPORTS MILD SOB, INCREASED SUPPLEMENTAL O2 TO 3L, PT STATES NO RELIEF CALLED RT TO ADMINISTER BREATHING TREATMENT, RT AT BEDSIDE INITIATING BREATHING TREATMENT
--- NOTE | 2019-02-14 02:15 | NUR ---
PT REPORTS BREATHING TREATMENT IMPROVED SOB AND IS REQUESTING TEA, ALL NEEDS MET, WILL CONTINUE TO MONITOR.
--- NOTE | 2019-02-14 03:05 | NUR ---
PT IS SLEEPING COMFORTABLY IN BED WITH NO ACUTE DISTRESS AT THIS TIME, RESPIRATIONS EVEN AND UNLABORED SAFETY PRECAUITONS IN PLACE WILL CONTINUE TO MONITOR
--- NOTE | 2019-02-14 04:00 | NUR ---
PT REPORTS [place], ADMINISTERED TYLENOL PER ORDER, WILL CONTINUE TO MONITOR
--- NOTE | 2019-02-14 04:14 | NUR ---
PT REQUESTING BREATHING TREATMENT, CONTACTED RT AND, RT INITIATED BREATHING TREATMENT. PT REPORTS RELIEF OF MILD SOB AFTER BREATHING TREATMENT
--- NOTE | 2019-02-14 05:11 | NUR ---
PT HAD EPISODES OF SOB ON AND OFF THROUGH OUT THE SHIFT, RESPIRATORY THERAPY ADMINISTERED BREATHING TREATMENTS TWICE DURING THE NIGHT WHICH ALIEVIATED PT SOB, PAIN WAS MANAGED WITH TYLENOL AND OXYCODONE (PTS HOME MED) AND WAS EFFECTIVE, SAFETY PRECAUTIONS WERE MAINTAINED THROUGH THE NIGHT, WILL CONTINUE TO MONITOR AND ENDORSE CARE TO ONCOMING RN
[2019-02-14 07:01] LABS: PLATELET COUNT 316 x10^3mcL (130-400)
--- NOTE | 2019-02-14 07:05 | NUR ---
RECEIVED BEDSIDE REPORT FROM [employer] PRINTING MACHINIST NURSE. PATIENT RESTING COMFORTABLY IN BED. NO APPARENT DISTRESS OR DISCOMFORT NOTED. 3L NC IN PLACE AND TOLERATING WELL. NO APPARENT DISTRESS OR DISCOMFORT NOTED. PATIENT C/O MILD SHORTNESS OF BREATH. PATIENT DENIES CHEST PAIN/PRESSURE AT THIS TIME. IVS PATENT AND INTACT. ALL QUESTIONS AND CONCERNS ADDRESSED. ALL NEEDS ATTENDED TO. WILL CONTINUE TO MONITOR
[2019-02-14 07:06] LABS: BASOPHIL % 0 % (0-2); RED CELL DISTRIBUTION WIDTH 17.2 % (11.5-14.5)
[2019-02-14 07:10] LABS: CALCIUM 9.9 mg/dL (8.5-10.1); CARBON DIOXIDE 29.4 mmol/L (21-32); CHLORIDE SERUM 99 mmol/L (98-107); GFR1 > 60 mL/min; GLUCOSE SERUM 201 mg/dL (74-106); POTASSIUM SERUM 3.7 mmol/L (3.5-5.1); SODIUM SERUM 142 mmol/L (136-145)
--- NOTE | 2019-02-14 10:00 | NUR ---
ALL MORNING MEDICATIONS ADMINISTERED AT THIS TIME. PATIENT TOLERATED MEDICATION WELL. NO ADVERSE EFFECTS NOTED. ALL NEEDS ATTENDED TO. WILL CONTINUE TO MONITOR
--- NOTE | 2019-02-14 10:11 | NUR ---
Follow-up Nutrition Assessment Dx: COPD Labs:(02/14) BH, BUN:36H, WBC:12.4H, Hct:41L Meds: Albuterol, Ativan, Bumex, Colace, Levaquin, Lovenox, Mucines, Pulmicort, Solumedrol, Tylenol and Zofran Current Diet: Regular PO intake: (02/12) B:85% L:85% D:85% (02/13) :100% D:25% (02/14) B:100% Weights: (02/09) 134.9kg (02/14) unable to get weight due to pt sitting on the edge of the bed Skin: intact Edema: +1 BLE Last BM: 02/12, + active bowel sounds Per progress note 02/14, goal is to maintain 02 sat between 88-95%. During visit, pt was seen laying at the edge of his bed with 3L NC. Pt reports to improved PO intake with no c/o GI issues. Estimated Nutritional Needs based on adjusted body weight:94kg for obesity Energy: 1880-2350kcal/day (20-25kcal/kg for maintenance) Protein: 75-94g/day (0.8-1.0g/kg for maintenance) Fluid: per doctor Nutrition Diagnosis 1. Inadequate oral intake related to COPD, cough as evidenced by self-reported PO of 50% (improving). 2. Obesity related to excessive caloric intake and sendentary lifestyle as evidenced by BMI:40.3kg/m2 and 166% of IBW. Intervention 1. Recommend low fat diet. Monitor/Evaluate Previous goal: PO intake at least 75% of estimated needs Goal: PO intake at least 75% of estimated needs and weight loss Monitor: PO intake, Labs, GI function and weights F/U in 7 days as low risk: 02/21
--- NOTE | 2019-02-14 10:12 | NUR ---
1. Recommend low fat diet.
--- NOTE | 2019-02-14 12:00 | NUR ---
IV TO LEFT AC REMOVED DUE TO PATIENT C/O OF IT IRRITATING HIM. SECOND IV TO RIGHT FOREARM STILL PATENT AND INTACT. ALL NEEDS ATTENDED TO
--- NOTE | 2019-02-14 13:00 | NUR ---
PATIENT SITTING UP IN BED EATING LUNCH AT THIS TIME. PATIENT TOLERATING DIET WELL. NO APPARENT DISTRESS OR DISCOMFORT NOTED. ALL NEEDS ATTENDED TO. WILL CONTINUE TO MONITOR
--- NOTE | 2019-02-14 14:00 | NUR ---
SPOKE TO DR REYES AT THIS TIME REGARDING PATIENT POTASSIUM MEDICATION. DR REYES INFORMED PATIENT POTASSIUM 3.7 AND WONDERING IF HE WANTS PATIENT TO RECEIVE POTASSIUM PILL. DR REYES STATES "I ORDERED THAT FOR A REASON." WILL MEDICATE PATIENT AT THIS TIME
--- NOTE | 2019-02-14 16:50 | NUR ---
PATIENT C/O 02/17 BACK PAIN. PATIENT MEDICATED WITH OXYCODONE PRN. PATIENT TOLERATED WELL. NO ADVERSE EFFECTS NOTED. ALL NEEDS ATTENDED TO. WILL CONTINUE TO MONITOR
--- NOTE | 2019-02-14 18:35 | NUR ---
PATIENT RESTING COMFORTABLY IN BED AT THIS TIME. NO APPARENT DISTRESS OR DISCOMFORT NOTED. IV PATENT AND INTACT. 2L NC IN PLACE AND TOLERATING WELL. ALL QUESTIONS AND CONCERNS ADDRESSED SAFETY PRECAUTIONS MAINTAED. ALL NEEDS ATTENDED TO. AT BEDSIDE. WILL ENDORSE ALL CARE TO SALES ORDER SPECIALIST NURSE
--- NOTE | 2019-02-14 19:45 | NUR ---
RECIEVED PT RESTING IN BED WITH AT BEDSIDE, NO ACUTE DISTRESS AT THIS TIME, PT DENIES SOB AT THIS TIME, ASSESSMENT PERFORMED AT THIS TIME, PT IS A/OX4 NO COMPLAINTS OF [place] OR DIZZINESS, PT DENIES CHEST PAIN, PT ON 2L NC TOLERATING WELL, IV TO THE RFA 22 G, DRESSING CDI, NO SWELLING OR REDNESS, SAFETY PRECAUTIONS IN PLACE, WILL CONTINUE TO MONITOR
--- NOTE | 2019-02-14 23:00 | NUR ---
PT UP AND AMBULATED TO BATHROOM, PT DENIES SOB A THIS TIME, SAFETY PRECAUTIONS IN PLACE, WILL CONITNUE TO MONITOR
--- NOTE | 2019-02-14 23:33 | NUR ---
PT COMPLAINS OF MILD SOB AND IS REQUESTING BREATHING TREATMENT, RT NOTIFIED AND INTIATING TREATMENT
[2019-02-15] VITALS (7 sets, daily range): BP systolic 109–176; BP diastolic 53–84
--- NOTE | 2019-02-15 00:45 | NUR ---
PT COMPLAINTNG OF SEVER LOWER BACK PAIN, ADMINISTERED ROXICODONE PER PHYSICIAN ORDER, WILL CONTINUE TO MONITOR
--- NOTE | 2019-02-15 02:00 | NUR ---
PT REQUESTING BREATHING TREATMENT, RT NOTIFIED AND INITIATING TREATMENT
--- NOTE | 2019-02-15 03:07 | NUR ---
PT REQUESTING LOZANGE AND TEA, ALL NEEDS ATTENDED TO, SAFETY PRECAUTIONS IN PLACE, WILL CONTINUE TO MONITOR
--- NOTE | 2019-02-15 04:53 | NUR ---
PT REQUESTING TEA, DECAFINATED TEA PROVIDED, SAFETY PRECAUTIONS IN PLACE, WILL CONTINUE TO MONITOR
--- NOTE | 2019-02-15 06:05 | NUR ---
PT WAS UP THROUGH OUT MOST OF THE NIGHT WATCHING TV, PT HAD 2 EPISODES OF MILD SOB RESOLVED BY BREATHING TREATMENT FROM RT, PT HAD NO COMPLAINTS OF CHEST PAIN OR PRESSURE THROUGH SHIFT, PT AMBULATED 5 TIMES TO THE BATHROOM, SAFETY PRECAUTIONS MAINTAINED, WILL CONTINUE TO MONITOR AND ENDORSE CARE TO ONCOMING RN
[2019-02-15 06:24] LABS: PLATELET COUNT 334 x10^3mcL (130-400)
[2019-02-15 06:26] LABS: CALCIUM 9.5 mg/dL (8.5-10.1); CARBON DIOXIDE 29.9 mmol/L (21-32); CHLORIDE SERUM 100 mmol/L (98-107); GFR1 > 60 mL/min; GLUCOSE SERUM 200 mg/dL (74-106); MAGNESIUM 2.1 mg/dL (1.8-2.4); POTASSIUM SERUM 4.4 mmol/L (3.5-5.1); SODIUM SERUM 141 mmol/L (136-145)
[2019-02-15 06:33] LABS: RED CELL DISTRIBUTION WIDTH 17.4 % (11.5-14.5)
[2019-02-15 06:34] LABS: BASOPHIL % 0 % (0-2)
--- NOTE | 2019-02-15 07:30 | NUR ---
PT IS AAOX4. VERBALLY RESPONSIVE, ABLE TO COMMUNICATE NEEDS. DENIES H/A AND DIZZINESS. RESP EVEN, SHALLOW AND UNLABORED. LUNG SOUNDS WHEEZES AND CRACKLES BILATERALLY. ON N/C AT [address] READING SINUS TACH HR 105. DENIES C/P AND PRESSURE. ABDOMEN SOFT, NONTENDER, NONDISTENDED. BOWEL SOUNDS ACTIVE X4 QUADS. DENIES N/V/D. SKIN CDI. PERIPHERAL PULSES PALPABLE. PT HAS +1 EDEMA. IV CATH N/S LOCKED TO RFA. SITE WNL. PT STATES HE HAS BACK PAIN BUT REFUSES PAIN MED AT THIS TIME. CALL LIGHT WITHIN REACH. BED IN LOW POSITION.
--- NOTE | 2019-02-15 09:00 | NUR ---
ROXICODONE 15 MG PO GIVEN FOR CHRONIC BACK PAIN. RESP EVEN AND UNLABORED. WILL CONTINUE TO MONITOR.
--- NOTE | 2019-02-15 09:00 | NUR ---
PT SITTING UP AT BEDSIDE. DUE MEDS GIVEN. RESP EVEN AND UNLABORED. DENIES PAIN AT THIS TIME. AT BEDSIDE. CALL LIGHT WITHIN REACH.
--- NOTE | 2019-02-15 10:15 | NUR ---
TYLENOL 650MG PO GIVEN FOR H/A 12/18. FLUIDS ENCOURAGED. CALL LIGHT WITHIN REACH.
--- NOTE | 2019-02-15 12:55 | NUR ---
ROUTINE ATIVAN 1MG PO AND DUE MEDS GIVEN. PT STATES ATIVAN IS EFFECTIVELY KEEPING HIM CALM AT THIS TIME. RESP EVEN AND UNLABORED. NO RESP DISTRESS NOTED. WILL CONTINUE TO MONITOR.
--- NOTE | 2019-02-15 16:14 | NUR ---
PT IS SLEEPING IN BUT EASILY AROUSABLE TO VERBAL STIMULI. NO DISTRESS NOTED. RESP EVEN AND UNLABORED. CALL LIGHT WITHIN REACH.
--- NOTE | 2019-02-15 17:07 | NUR ---
PT TOLERATING 02 AT 1LPM WELL, NO SOB, RESP EVEN AND UNLABORED. PT SITTING UP AT BEDSIDE. DUE MEDS GIVEN. CALL LIGHT WITHIN REACH.
--- NOTE | 2019-02-15 18:13 | NUR ---
ROXICODONE 15MG PO GIVEN FOR PIERCING PAIN 03/20 TO BACK. PT RESPOSITIONED FOR COMFORT. RESP EVEN AND UNLABORED. CALL LIGHT WITHIN REACH.
--- NOTE | 2019-02-15 18:36 | NUR ---
PT IS AAOX4. RESP EVEN AND UNLABORED. NO RESP DISTRESS AT THIS TIME. 02 N/C AT 1LPM IN PLACE. STATES HE HAS PAIN BUT IS TOLERABLE. IV CATH N/S LOCKED TO RFA, FLUSHED AND PATENT. NO S/S OF INFECTION NOTED. CALL LIGHT WITHIN REACH. FALL PROTOCOL MAINTAINED. BED IN LOWEST POSITION. WILL ENDORSE ALL CARE TO NOC RN.
--- NOTE | 2019-02-15 19:05 | NUR ---
RECEIVED PT IN BED RESTING.AAOX4.BILATERAL WHEEZE/CRACKLES. NO ACUTE RESPIRATORY DISTRESS NOTED.DENIES ANY PAIN AT THIS TIME.BIPAP AT BEDSIDE PRN. +1 EDEMA TO BLE.SALINE LOCK TO RFA,PATENT ANDN INTACT. BED IN LOWEST POSITION,CALL LIGHT WITHIN REACH. WILL CONTINUE TO MONITOR.
--- NOTE | 2019-02-15 20:34 | NUR ---
PT C/O [place] 02/17. MEDICATED TYLENOL 650MG PO ORDERTED. WILL CONTINUE TO MONITOR.
--- NOTE | 2019-02-16 01:26 | NUR ---
PT C/O BACK PAIN 04/20. MEDICATED OXYCODONE 15MG PO ORDERED. WILL CONTINUE TO MONITOR.
--- NOTE | 2019-02-16 04:59 | NUR ---
PT AWAKE,ALERT. NO ACUTE RESPIRATORY DISTRESS NOTED. DENIES PAIN AT THIS TIME.BED IN LOWEST POSIITON,CALL LIGHT WITHIN REACH. WILL CONTINUE TO MONITOR.
--- NOTE | 2019-02-16 05:49 | NUR ---
[PT C/O [place] 02/17. MEDICATED TYLENOL 650MG PO ORDERED. WILL CONTINUE TO MONITOR.
[2019-02-16 06:07] VITALS: BP 117/84
--- NOTE | 2019-02-16 07:21 | NUR ---
CARE ENDORSED TO DAY NURSE TERRYALL QUESTION AND CONCERN WERE ADDRESSED.
--- NOTE | 2019-02-16 07:46 | NUR ---
RECEIVED PATIENT FROM DEVIKA RODRIGUEZ, PATIENT SEEN SEATED AT BEDSIDE. PATIENT STATES HE WAS ABLE TO EXPECTORATE SCANT YELLOW MUCOUS. WILL CONTINUE TO MONITOR FOR PAIN AND CONTINUE RESPIRATORY TREATMENT. CALL LIGHT IN REACH AT THIS TIME.
[2019-02-16 09:53] VITALS: BP 173/77
--- NOTE | 2019-02-16 12:47 | NUR ---
PATIENT IN BED AT THIS TIME. AT BEDSIDE. PATIENT HAS COMPLAINTS OF ORAL [place]. ENCOURAGED ORAL CARE AND WILL NOTIFY DR REYES ONCE HE ARRIVES TO FLOOR. PO ATIVAN GIVEN, PATIENT STATES DUE TO HIS ANXIOUSNESS THAT HE PICKS AT HIS SKIN. LOTION PROVIDED. CALL LIGHT IN REACH AT THIS TIME.
--- NOTE | 2019-02-16 13:55 | NUR ---
DR REYES IN TO SPEAK WITH PATIENT AND . UPDATED TO PLAN OF CARE, LIKELY TO BE SENT HOME WITH HOME O2. DR REYES PLACED ORDER FOR CLERICAL AND OFFICE SUPPORT WORKERS, PATIENT LIKELY TO DISCHARGE TOMORROW. MADE AWARE OF ORAL [place]. PATIENT AND VERBALIZE UNDERSTANDING. CALL LIGHT IN REACH.
[2019-02-16 16:05] VITALS: BP 139/64
--- NOTE | 2019-02-16 18:08 | NUR ---
PATIENT SEATED AT BEDSIDE. STATES HE IS FEELING BETTER AFTER RESPIRATORY TREATMENT. SPOKE WITH [employer] ADVISOR WHO STATES DELIVERY OF HOME OXYGEN WILL OCCUR EITHER TONIGHT OR TOMORROW. ALSO THAT PATIENT HH HAS BEEN ARRANGED. WILL ENDORSE TO ONCOMING NURSE. CALL LIGHT IN REACH AT THIS TIME AND PRN OXYCODONE PO ADMINISTERED.
[2019-02-16 20:00] VITALS: BP 149/80
--- NOTE | 2019-02-16 20:00 | NUR ---
PATIENT RECEIVED IN BED SITTING WATCHING TV,IN NO DISTRESS. AAOX4,DULL HEADACHE INFORMED ABOUT PAIN MANAGEMENT. FOUND ON 1LNC SAT 95%, BREATHING EVEN AND UNLABORED BS FINE CRACKLES BASES AND EXPIRATORY WHEEZING UPPER LOBES, MILD SOB ON EXERTION, OCC PRODUCTIVE COUGH GREENISH PER PATIENT CLEARED BY COUGHING RECEIVED RT PROTOCOL PRN, PATIENT WITH HOARSE VOICE AND ALSO WITH ORAL THRUSH. DENIES CHEST PAINS, HR=93BPM, MED/SURG PATIENT. HEPLOCK TO RFA PATENT AND INTACT. PATIENT IS AMBULATORY, EDEMA TO BLE PULSES MODERATE. PATIENT INFORMED ABOTU POC THIS SHIFT.SAFETY PRECAUTIONS MAINTAINED. WILL CONTINUE TO MONITOR.
--- NOTE | 2019-02-16 21:54 | NUR ---
SCHEDULED MEDS ADMINISTERD, PATIENT INFORMED ABOUT EACH MEDS ACTIONS AND PURPOSE PRIOR. TOOK PILLE WELL.COMPLAINED OF HEADACHE MEDICATED PRN.
--- NOTE | 2019-02-16 22:46 | NUR ---
PATIENT STATED HEADACHE IS BETTER RATED AT 1/10.
--- NOTE | 2019-02-16 23:52 | NUR ---
SCHEDULED MEDS ADMINISTERED. PATIENT MEDICATED WITH ATIVAN PRN, SLIGHTLY ANXIOUS.
--- NOTE | 2019-02-17 01:34 | NUR ---
PATIENT COMPLAINED OF NECK AND BACK PAIN, MEDICATED PRN MADE COMFORTABLE IN BED. WILL MONITOR EFFECTIVENESS.
--- NOTE | 2019-02-17 02:30 | NUR ---
PATIENT CHECKED THIS TIME SLEEPING BUT EASILY AWAKEN WHEN NAME CALLED, CLAIMED PAIN TO NECK AND BACK IS AT 2/10 SUBSIDING AND BEARABLE.
[2019-02-17 05:08] VITALS: BP 187/83
--- NOTE | 2019-02-17 05:43 | NUR ---
SCHEDULED MEDS ADMINISTERED, PATIENT INFORMED ABOUT EACH MEDS ACTIONS AND PURPOSE.TOOK PILLS WELL.
--- NOTE | 2019-02-17 06:20 | NUR ---
BP THIS AM WAS 187/83, HYDRALAZINE 10 MG PO GIVEN. WILL CHECK EFFECTIVENESS.
[2019-02-17 06:34] LABS: CARBON DIOXIDE 32.3 mmol/L (21-32); CHLORIDE SERUM 101 mmol/L (98-107); GFR1 > 60 mL/min; GLUCOSE SERUM 241 mg/dL (74-106); POTASSIUM SERUM 4.3 mmol/L (3.5-5.1); SODIUM SERUM 142 mmol/L (136-145)
--- NOTE | 2019-02-17 06:38 | NUR ---
PATIENT SLEEP OFF AND ON DURING THE SHIFT, NO RESP. DISTRESS ENCOUNTERED, O2 AT 1LNC MAINTAINED. MEDICATED WITH HYDRALAZINE PO THIS AM FOR BPOF 187/83, DULL HEADACHE STATED. HEPLOCK TO RFA PATENT AND INTACT TAPE SECURED AND CAPPED WHEN NOT IN USE.VOIDED WITHOUT DIFF. MEDICATED X1 WITH ROXICODONE AND ATIVAN X2 FOR ANXIETY RECEIVED RELIEF. SAFETY PRECAUTIONS MAINTAINED. WILL ENDORSE CONTINUITY OF CARE TO INCOMING NURSE.
[2019-02-17 06:49] LABS: PLATELET COUNT 327 x10^3mcL (130-400)
[2019-02-17 07:09] LABS: RED CELL DISTRIBUTION WIDTH 17.1 % (11.5-14.5)
--- NOTE | 2019-02-17 07:10 | NUR ---
RECEIVED BEDSIDE REPORT FROM [employer] OPERATOR NURSE AT THIS TIME. PATIENT RESTING COMFORTABLY IN BED. NO APPARENT DISTRESS OR DISCOMFORT NOTED. 1L NC IN PLACE. BREATHING EVEN AND UNLABORED. PATIENT DENIES CHEST PAIN/PRESSURE AT THIS TIME. IV PATENT AND INTACT. ALL QUESTIONS AND CONCERNS ADDRESSED. ALL NEEDS ATTENDED TO. WILL CONTINUE TO MONITOR
--- NOTE | 2019-02-17 07:12 | NUR ---
BEDSIDE REPORT AND INTRODUCTION PERFORMED WITH INCOMING NURSE NAHED.
[2019-02-17 09:21] VITALS: BP 121/56
--- NOTE | 2019-02-17 09:30 | NUR ---
PAGED DR REYES AT THIS TIME REGARDING PATIENTS MEDICATION LOVENOX NOT BEING ON PATIENT EMAR AT THIS TIME. AWAITING CALL BACK AT THIS TIME.
--- NOTE | 2019-02-17 10:57 | NUR ---
RECEIVED CALL FROM DR REYES AT THIS TIME REGARDING PATIENT LOVENOX MEDICATION. PER DR REYES, OKAY TO INPUT ONE TIME DOSE OF LOVENOX FOR THIS AM. TELEPHONE ORDER READ BACK, CONFIRMED, AND FOLLOWED THROUGH. ALL NEEDS ATTENDED TO. WILL CONTINUE TO MONITOR
[2019-02-17 11:56] LABS: BAND NEUTROPHIL 9 % (0-10); BASOPHIL 0 % (0-2); METAMYELOCTE 3 % (0-2); MONOCYTE 6 % (0-7); MYELOCYTE 1 % (0-2); SEGMENTED NEUTROPHILS 76 % (37-75)
[2019-02-17 11:58] LABS: rbc morphology (normal/abnorm) ABNORMAL (NORMAL)
[2019-02-17 12:00] LABS: target cell (codocyte) 1+
[2019-02-17 12:01] LABS: ovalocyte/elliptocyte 1+
--- NOTE | 2019-02-17 13:12 | NUR ---
PATIENT SITTING UP ON SIDE OF BED EATING LUNCH AT THIS TIME. PATIENT TOLERATING DIET WELL. NO APPARENT DISTRESS OR DISCOMFORT NOTED. ALL NEEDS ATTENDED TO. WILL CONTINUE TO MONITOR
[2019-02-17] MEDS ORDERED: MYCLUD PO (16:41)
[2019-02-17 16:58] VITALS: BP 121/56
--- NOTE | 2019-02-17 17:30 | NUR ---
PATIENT STABLE TO BE DISCHARGED TO HOME. DISCHARGE INSTRUCTIONS GIVEN WELL EDUCATION. INSTRUCTED PATIENT ABOUT FOLLOW UP APPOINTMENT AND TO FOLLOW UP WITH SIGN SHOP SUPERVISOR. PATIENT VERBALIZES UNDERSTANDING. IV REMOVED WITH CATH INTACT. ID BANDS REMOVED. ALL BELONGINGS WITH PATIENT. ALL QUESTIONS AND CONCERNS ADDRESSED. ALL NEEDS ATTENDED TO. ESCORTED DOWN TO THE LOBBY BY RN AT THIS TIME
[2019-02-22 10:21] VITALS: Ht 182.9 cm; Wt 134.9 kg
== END 2019-02-17 17:19 | disposition home health service (06) | DRG 291 ==
LOC: ED 21:58 → MU 02-08 00:31 → DU 02-08 00:31 → MU 02-15 13:38
PROVIDERS: Emergency Medicine; Internal Medicine; Internal Medicine Pulmonary Disease; ADMIT Internal Medicine Pulmonary Disease
DX: I50.43 Acute on chronic combined systolic (congestive) and diastolic (congestive) heart failure (principal); N17.0 Acute kidney failure with tubular necrosis; J96.01 Acute respiratory failure with hypoxia; J44.1 Chronic obstructive pulmonary disease with (acute) exacerbation; J44.0 Chronic obstructive pulmonary disease with (acute) lower respiratory infection; B37.0 Candidal stomatitis; J20.8 Acute bronchitis due to other specified organisms; G47.33 Obstructive sleep apnea (adult) (pediatric); R80.9 Proteinuria, unspecified; G89.29 Other chronic pain; M54.5 Low back pain; F17.210 Nicotine dependence, cigarettes, uncomplicated; E66.9 Obesity, unspecified; Z68.38 Body mass index [BMI] 38.0-38.9, adult; Z85.47 Personal history of malignant neoplasm of testis; Z90.79 Acquired absence of other genital organ(s); Z92.21 Personal history of antineoplastic chemotherapy; Z79.891 Long term (current) use of opiate analgesic
CPT/HCPCS: 36600; 83880; 84439; G0378; J0132; J1644; J1650; J1956; J2920; J2930; J3010; J3490; J7030; J7040; J7613; J7620; J7626; Q0092

== ENCOUNTER 2019-07-05 16:21 | Inpatient (IN) | payer OTHER ==
[~2019-07-05] VITALS: Ht 182.9 cm; Wt 138.0 kg
[~2019-07-05 16:21] MED LIST: ALBUTEROL0.63 MG/3; ALL DAY ALLERGY10 M2 PO; MYCLUD PO; OXYCODONE HYDRO15 MG PO; PROAIR HFA8.5 GM IH
[2019-07-05 17:43] LABS: BASOPHIL % 0.3 % (0-2); PLATELET COUNT 293 x10^3mcL (130-400); RED CELL DISTRIBUTION WIDTH 16.5 % (11.5-14.5)
[2019-07-05 17:50] LABS: CALCIUM 9.1 mg/dL (8.5-10.1); CARBON DIOXIDE 28.7 mmol/L (21-32); CHLORIDE SERUM 97 mmol/L (98-107); CREATININE SERUM 1.2 mg/dL (0.7-1.3); GFR1 > 60 mL/min; GLUCOSE SERUM 110 mg/dL (74-106); SODIUM SERUM 137 mmol/L (136-145)
[2019-07-05 17:55] LABS: ALBUMIN 4.4 g/dL (3.4-5.0); ALKALINE PHOSPHATASE 120 U/L (46-116); ALT/SGPT 42 U/L (16-63); AMYLASE 58 U/L (25-115); AST/SGOT 39 U/L (15-37); BILIRUBIN TOTAL 0.48 mg/dL (0.20-1.00); LIPASE 42 IU/L (73-393); TOTAL PROTEIN, SERUM 8.1 g/dL (6.4-8.2)
[2019-07-05] MEDS ORDERED: BUMETANIDE1 MG PO (20:01)
[2019-07-05] MEDS ORDERED: FLOVENT DI100 MCG/A1 INH (20:02)
[2019-07-05] MEDS ORDERED: LISINOPRIL40 MG PO (20:02)
[2019-07-05] MEDS ORDERED: CLARITIN10 MG PO (20:02)
[2019-07-05] MEDS ORDERED: LACTULOSE10 GM/152 PO (20:03)
[2019-07-05] MEDS ORDERED: PROAIR HFA8.5 GM IH (20:03)
[2019-07-05] MEDS ORDERED: SYMBICORT1 AE3 INH (20:03)
[2019-07-05 22:41] VITALS: BP 152/87
[2019-07-05 22:45] VITALS: Ht 182.9 cm; Wt 138.0 kg
[2019-07-05 23:10] VITALS: BP 152/87
[2019-07-06] VITALS (11 sets, daily range): BP systolic 112–197; BP diastolic 45–87
[2019-07-06 16:09] LABS: BASOPHIL % 0.1 % (0-2)
[2019-07-06 16:10] LABS: PLATELET COUNT 77 x10^3mcL (130-400); RED CELL DISTRIBUTION WIDTH 16.2 % (11.5-14.5)
[2019-07-06 16:29] LABS: ALKALINE PHOSPHATASE 83 U/L (46-116); ALT/SGPT 72 U/L (16-63); AST/SGOT 86 U/L (15-37); BILIRUBIN TOTAL 1.2 mg/dL (0.20-1.00); CALCIUM 7.8 mg/dL (8.5-10.1); CARBON DIOXIDE 26.4 mmol/L (21-32); CHLORIDE SERUM 104 mmol/L (98-107); CREATININE SERUM 1.2 mg/dL (0.7-1.3); GFR1 > 60 mL/min; GLUCOSE SERUM 146 mg/dL (74-106); POTASSIUM SERUM 4.5 mmol/L (3.5-5.1); SODIUM SERUM 139 mmol/L (136-145)
[2019-07-06 16:30] LABS: ALBUMIN 2.8 g/dL (3.4-5.0); TOTAL PROTEIN, SERUM 5.6 g/dL (6.4-8.2)
[2019-07-07] VITALS (11 sets, daily range): BP systolic 125–149; BP diastolic 53–66
[2019-07-07 05:23] LABS: BASOPHIL % 0.1 % (0-2); PLATELET COUNT 238 x10^3mcL (130-400); RED CELL DISTRIBUTION WIDTH 17.3 % (11.5-14.5)
[2019-07-07 05:31] LABS: ALKALINE PHOSPHATASE 80 U/L (46-116); ALT/SGPT 61 U/L (16-63); AST/SGOT 40 U/L (15-37); BILIRUBIN TOTAL 1.05 mg/dL (0.20-1.00); CARBON DIOXIDE 27.8 mmol/L (21-32); CHLORIDE SERUM 101 mmol/L (98-107); GFR1 > 60 mL/min; GLUCOSE SERUM 163 mg/dL (74-106); SODIUM SERUM 136 mmol/L (136-145)
[2019-07-07 05:32] LABS: ALBUMIN 2.7 g/dL (3.4-5.0); TOTAL PROTEIN, SERUM 5.8 g/dL (6.4-8.2)
[2019-07-08 03:21] VITALS: BP 140/55
[2019-07-08 05:08] LABS: BASOPHIL % 0.1 % (0-2); PLATELET COUNT 238 x10^3mcL (130-400)
[2019-07-08 05:20] LABS: CALCIUM 8.2 mg/dL (8.5-10.1); CARBON DIOXIDE 26.6 mmol/L (21-32); CHLORIDE SERUM 101 mmol/L (98-107); CREATININE SERUM 0.9 mg/dL (0.7-1.3); GFR1 > 60 mL/min; GLUCOSE SERUM 143 mg/dL (74-106); POTASSIUM SERUM 3.7 mmol/L (3.5-5.1); SODIUM SERUM 136 mmol/L (136-145)
[2019-07-08 05:29] LABS: RED CELL DISTRIBUTION WIDTH 16.8 % (11.5-14.5)
[2019-07-08 06:43] LABS: MAGNESIUM 1.6 mg/dL (1.8-2.4); PHOSPHOROUS 2.2 mg/dL (2.5-4.9)
[2019-07-08 07:45] VITALS: BP 118/53
[2019-07-08 13:16] VITALS: BP 147/74
[2019-07-08 15:28] VITALS: BP 156/88
[2019-07-08 21:40] VITALS: BP 146/56
[2019-07-09 05:45] VITALS: BP 158/72
[2019-07-09 07:35] LABS: CALCIUM 8.1 mg/dL (8.5-10.1); CARBON DIOXIDE 30.3 mmol/L (21-32); CHLORIDE SERUM 100 mmol/L (98-107); CREATININE SERUM 0.8 mg/dL (0.7-1.3); GFR1 > 60 mL/min; GLUCOSE SERUM 138 mg/dL (74-106); MAGNESIUM 1.7 mg/dL (1.8-2.4); PHOSPHOROUS 2.3 mg/dL (2.5-4.9); POTASSIUM SERUM 3.6 mmol/L (3.5-5.1); SODIUM SERUM 138 mmol/L (136-145)
[2019-07-09 08:32] VITALS: BP 153/61
[2019-07-09 12:53] VITALS: BP 140/71
[2019-07-09 16:55] VITALS: BP 166/61
[2019-07-09 20:36] VITALS: BP 141/63
[2019-07-10 05:39] VITALS: BP 155/75
[2019-07-10 06:13] LABS: BASOPHIL % 0.1 % (0-2); PLATELET COUNT 247 x10^3mcL (130-400)
[2019-07-10 06:25] LABS: CALCIUM 8.3 mg/dL (8.5-10.1); CARBON DIOXIDE 29.8 mmol/L (21-32); CHLORIDE SERUM 99 mmol/L (98-107); CREATININE SERUM 0.8 mg/dL (0.7-1.3); GFR1 > 60 mL/min; GLUCOSE SERUM 119 mg/dL (74-106); POTASSIUM SERUM 3.6 mmol/L (3.5-5.1); SODIUM SERUM 138 mmol/L (136-145)
[2019-07-10 07:13] LABS: RED CELL DISTRIBUTION WIDTH 16.4 % (11.5-14.5)
[2019-07-10 08:36] VITALS: BP 172/78
[2019-07-10 12:34] VITALS: BP 157/75
[2019-07-10 16:27] VITALS: BP 149/72
[2019-07-10 20:15] VITALS: BP 154/80
[2019-07-11 05:09] VITALS: BP 156/87
[2019-07-11 06:41] LABS: BASOPHIL % 0.1 % (0-2); PLATELET COUNT 270 x10^3mcL (130-400)
[2019-07-11 06:43] LABS: ALKALINE PHOSPHATASE 117 U/L (46-116); ALT/SGPT 32 U/L (16-63); AST/SGOT 27 U/L (15-37); BILIRUBIN TOTAL 0.7 mg/dL (0.20-1.00); CALCIUM 8.4 mg/dL (8.5-10.1); CARBON DIOXIDE 30.9 mmol/L (21-32); CHLORIDE SERUM 97 mmol/L (98-107); CREATININE SERUM 0.8 mg/dL (0.7-1.3); GFR1 > 60 mL/min; GLUCOSE SERUM 129 mg/dL (74-106); POTASSIUM SERUM 3.5 mmol/L (3.5-5.1); SODIUM SERUM 136 mmol/L (136-145); TOTAL PROTEIN, SERUM 6.4 g/dL (6.4-8.2)
[2019-07-11 06:45] LABS: ALBUMIN 2.4 g/dL (3.4-5.0)
[2019-07-11 07:15] LABS: RED CELL DISTRIBUTION WIDTH 16.3 % (11.5-14.5)
[2019-07-11 08:28] VITALS: BP 152/80
[2019-07-11 12:55] VITALS: BP 155/80
[2019-07-11 16:13] VITALS: BP 148/64
[2019-07-11 20:16] VITALS: BP 111/87
[2019-07-12 05:46] VITALS: BP 148/87
[2019-07-12 06:29] LABS: BASOPHIL % 0.4 % (0-2); PLATELET COUNT 311 x10^3mcL (130-400)
[2019-07-12 06:34] LABS: RED CELL DISTRIBUTION WIDTH 16.3 % (11.5-14.5)
[2019-07-12 06:47] LABS: ALKALINE PHOSPHATASE 113 U/L (46-116); ALT/SGPT 38 U/L (16-63); AST/SGOT 26 U/L (15-37); BILIRUBIN TOTAL 0.5 mg/dL (0.20-1.00); CALCIUM 8.6 mg/dL (8.5-10.1); CARBON DIOXIDE 29.6 mmol/L (21-32); CHLORIDE SERUM 96 mmol/L (98-107); CREATININE SERUM 0.8 mg/dL (0.7-1.3); GFR1 > 60 mL/min; GLUCOSE SERUM 139 mg/dL (74-106); POTASSIUM SERUM 3.6 mmol/L (3.5-5.1); SODIUM SERUM 135 mmol/L (136-145); TOTAL PROTEIN, SERUM 6.6 g/dL (6.4-8.2)
[2019-07-12 06:55] LABS: ALBUMIN 2.4 g/dL (3.4-5.0)
[2019-07-12 08:54] VITALS: BP 179/77
[2019-07-12 12:03] VITALS: BP 132/69
[2019-07-12 17:47] VITALS: BP 150/72
[2019-07-12 22:27] VITALS: BP 139/71
[2019-07-13 06:51] VITALS: BP 137/63
[2019-07-13 08:55] VITALS: BP 143/83
[2019-07-13 12:04] VITALS: BP 143/83
== END 2019-07-13 12:47 | disposition home health service (06) | DRG 329 ==
LOC: ED 16:21 → IC 21:22 → MU 21:22 → DU 21:22 → IC 07-06 14:35 → DU 07-08 14:51
PROVIDERS: Internal Medicine Pulmonary Disease; Student in an Organized Health Care Education/Training Program; Surgery; ADMIT Internal Medicine Pulmonary Disease
PROC: 0DN80ZZ Release Small Intestine, Open Approach (ICD-10-PCS; 2019-07-06)
PROC: 0WPF0JZ Removal of Synthetic Substitute from Abdominal Wall, Open Approach (ICD-10-PCS; 2019-07-06)
PROC: 0DB80ZZ Excision of Small Intestine, Open Approach (ICD-10-PCS; principal; 2019-07-06 10:45)
DX: K56.50 Intestinal adhesions [bands], unspecified as to partial versus complete obstruction (principal); J96.20 Acute and chronic respiratory failure, unspecified whether with hypoxia or hypercapnia; Z68.41 Body mass index [BMI] 40.0-44.9, adult; I10 Essential (primary) hypertension; J44.9 Chronic obstructive pulmonary disease, unspecified; F17.210 Nicotine dependence, cigarettes, uncomplicated; E66.01 Morbid (severe) obesity due to excess calories; Z85.47 Personal history of malignant neoplasm of testis; Z99.81 Dependence on supplemental oxygen
CPT/HCPCS: 36556; 36600; 82962; 90658; 97116-GP; 97530-GP; A4628; C1751; C9113; G0378; J0330; J0610; J1200; J1580; J1644; J2250; J2270; J2405; J2704; J2710; J2765; J3010; J3475; J3490; J7030; J7040; J7120; J7131; J7613; J7620; J7626; J7644; J8597; Q0092; Q0163; Q9967

== ENCOUNTER 2019-10-19 12:07 | Emergency (ER) | payer OTHER ==
[~2019-10-19] VITALS: Ht 182.9 cm; Wt 132.9 kg
[~2019-10-19 12:07] MED LIST changes: +BUMETANIDE1 MG PO; +CLARITIN10 MG PO; +FLOVENT DI100 MCG/A1 INH; +LACTULOSE10 GM/152 PO; +LISINOPRIL40 MG PO; +SYMBICORT1 AE3 INH
[2019-10-19 12:16] VITALS: Ht 182.9 cm; Wt 132.9 kg
[2019-10-19 13:30] LABS: BASOPHIL % 0.2 % (0-2); PLATELET COUNT 313 x10^3mcL (130-400)
[2019-10-19 13:33] LABS: RED CELL DISTRIBUTION WIDTH 17.9 % (11.5-14.5)
[2019-10-19 14:02] LABS: CALCIUM 9.1 mg/dL (8.5-10.1); CARBON DIOXIDE 26.7 mmol/L (21-32); CHLORIDE SERUM 102 mmol/L (98-107); CREATININE SERUM 1.2 mg/dL (0.7-1.3); GFR1 > 60 mL/min; GLUCOSE SERUM 120 mg/dL (74-106); POTASSIUM SERUM 4.4 mmol/L (3.5-5.1); SODIUM SERUM 141 mmol/L (136-145)
[2019-10-19 14:08] LABS: ALBUMIN 3.9 g/dL (3.4-5.0); ALKALINE PHOSPHATASE 133 U/L (46-116); ALT/SGPT 27 U/L (16-63); AST/SGOT 17 U/L (15-37); BILIRUBIN TOTAL 0.3 mg/dL (0.20-1.00); C REACTIVE PROTEIN 1.9 mg/dL (<=0.9); TOTAL PROTEIN, SERUM 7.9 g/dL (6.4-8.2); URIC ACID 4.6 mg/dL (3.5-7.2)
[2019-10-19 14:26] LABS: ERYTHROCYTE SED RATE 29 mm/hr (0-20)
[2019-10-19 15:50] VITALS: BP 108/65
== END 2019-10-19 16:33 | disposition home or self-care (01) ==
LOC: ED 12:07
PROVIDERS: Emergency Medicine
DX: M25.561 Pain in right knee (principal); G89.29 Other chronic pain; J44.9 Chronic obstructive pulmonary disease, unspecified; Z88.0 Allergy status to penicillin; Z88.1 Allergy status to other antibiotic agents; Z88.5 Allergy status to narcotic agent; Z88.6 Allergy status to analgesic agent; Z88.8 Allergy status to other drugs, medicaments and biological substances; Z98.890 Other specified postprocedural states; X50.1XXA Overexertion from prolonged static or awkward postures, initial encounter; Y93.89 Activity, other specified; Y92.89 Other specified places as the place of occurrence of the external cause; Y99.8 Other external cause status
CPT/HCPCS: 36415; J2270; J3010; Q0092